=== PATIENT | male | born 1980 | race Caucasian/White ===

== ENCOUNTER → 2019-11-14 | Outpatient (CLI) | payer OTHER ==
[~2019-11-14] MED LIST: budesonide NS
== END | disposition home or self-care (01) ==
LOC: STAR 13:35
PROVIDERS: ATTEND Otolaryngology
DX: Z01.812 Encounter for preprocedural laboratory examination (principal); Z20.828 Contact with and (suspected) exposure to other viral communicable diseases
CPT/HCPCS: 36415; 87635

== ENCOUNTER 2019-11-18 06:19 | Day surgery (SDC) | payer OTHER ==
[~2019-11-18] VITALS: Ht 180.3 cm; Wt 75.0 kg
[2019-11-18] MEDS ORDERED: EPINEPHRINE TOPICAL SOLN 1 MG/ML, 30ML ONE (06:52)
[2019-11-18] MEDS ORDERED: LIDOCAINE 1%-EPI 1:100K, 20ML ONE (06:53)
[2019-11-18] MEDS ORDERED: BACITRACIN OINT 500U/GM, 15 GM ONE (06:53)
[2019-11-18] MEDS ORDERED: FLUORESCEIN SODIUM 500 MG/5 ML ONE (06:53)
[2019-11-18] MEDS ORDERED: LACTATED RINGERS 1,000 ML IV SCH (06:55)
[2019-11-18] MEDS ORDERED: CHLORHEXIDINE 15 ML UDC MM STA (06:55)
[2019-11-18] MEDS ORDERED: SCOPOLAMINE 1MG PATCH TD ONE (07:02)
[2019-11-18] MEDS ORDERED: ACETAMINOPHEN 500 MG TABLET PO STA (07:02)
[2019-11-18] MEDS ORDERED: FENTANYL PF 250 MCG/5ML ONE (07:10)
[2019-11-18] MEDS ORDERED: MIDAZOLAM 1 MG/ML, 2ML ONE (07:10)
[2019-11-18] MEDS ORDERED: FENTANYL PF 100 MCG/2ML IV PRN (07:30)
[2019-11-18] MEDS ORDERED: PROMETHAZINE 25 MG/ML, 1ML IVPush PRN (07:30)
[2019-11-18] MEDS ORDERED: OXYcodone 5 MG/5 ML ORAL.SOL UDC PO PRN (07:30)
[2019-11-18] MEDS ORDERED: MEPERIDINE/PF 25MG/0.5ML IVPush PRN (07:30)
[2019-11-18] MEDS ORDERED: LABETALOL 5MG/ML, 20ML IV PRN (07:30)
[2019-11-18] MEDS ORDERED: EPHEDRINE 50 MG/ML, 1ML IVPush PRN (07:30)
[2019-11-18] MEDS ORDERED: HYDROmorphone 1 MG/ML, 1ML INJ IVPush PRN (07:30)
[2019-11-18] MEDS ORDERED: ONDANSETRON 2MG/ML, 2ML IVPush PRN (07:30)
[2019-11-18] MEDS ORDERED: hydrALAzine 20 MG/ML, 1ML IV PRN (07:30)
[2019-11-18] MEDS ORDERED: ONDANSETRON 2MG/ML, 2ML ONE (07:58)
[2019-11-18] MEDS ORDERED: CEFAZOLIN 1,000 MG ONE (07:58)
[2019-11-18] MEDS ORDERED: SUCCINYLCHOLINE 20 MG/ML, 10ML ONE (07:58)
[2019-11-18] MEDS ORDERED: PROPOFOL 10 MG/ML, 20ML ONE (07:58)
[2019-11-18] MEDS ORDERED: DEXAMETHASONE 4 MG/ML, 1ML ONE (07:58)
[2019-11-18] MEDS ORDERED: LIDOCAINE-MPF 2% ,5ML ONE (08:29)
[2019-11-18] MEDS ORDERED: KETOROLAC 30 MG/1 ML ONE (08:29)
== END 2019-11-18 14:45 | disposition home or self-care (01) ==
LOC: OUT 06:19
PROVIDERS: ATTEND Otolaryngology
DX: J32.0 Chronic maxillary sinusitis (principal); J33.9 Nasal polyp, unspecified; J34.89 Other specified disorders of nose and nasal sinuses; Z79.899 Other long term (current) drug therapy; Z88.5 Allergy status to narcotic agent; Z91.048 Other nonmedicinal substance allergy status; Z98.890 Other specified postprocedural states
CPT/HCPCS: 31253; 31256; 31259; 88304; J0330; J0690; J1100; J1885; J2250; J2405; J2704; J3010; J3490; J7120

== ENCOUNTER 2019-11-25 08:08 | Day surgery (SDC) | payer OTHER ==
[~2019-11-25] VITALS: Ht 180.3 cm; Wt 75.2 kg
[~2019-11-25 08:08] MED LIST changes: +OXYMETAZOLINE NASAL SPRAY 0.05%, 15ML ONE
[2019-11-25] MEDS ORDERED: CHLORHEXIDINE 15 ML UDC MM STA (08:27)
[2019-11-25] MEDS ORDERED: OXYMETAZOLINE NASAL SPRAY 0.05%,30ML NAS ONE (10:16)
== END 2019-11-25 10:45 | disposition home or self-care (01) ==
LOC: OUT 08:08
PROVIDERS: ATTEND Otolaryngology
DX: J32.0 Chronic maxillary sinusitis (principal); Z20.828 Contact with and (suspected) exposure to other viral communicable diseases; Z88.8 Allergy status to other drugs, medicaments and biological substances; Z88.5 Allergy status to narcotic agent; Z87.891 Personal history of nicotine dependence; Z72.89 Other problems related to lifestyle; Z79.899 Other long term (current) drug therapy
CPT/HCPCS: 87635

== ENCOUNTER → 2020-04-21 | Outpatient (CLI) | payer OTHER ==
[~2020-04-21] MED LIST changes: +CHOL400T5 PO; -OXYMETAZOLINE NASAL SPRAY 0.05%, 15ML ONE
== END | disposition home or self-care (01) ==
LOC: STAR 12:53
PROVIDERS: ATTEND Otolaryngology
DX: Z20.822 Contact with and (suspected) exposure to COVID-19 (principal); J32.0 Chronic maxillary sinusitis; J32.4 Chronic pansinusitis
CPT/HCPCS: 87635

== ENCOUNTER 2020-04-27 08:37 | Day surgery (SDC) | payer OTHER ==
[~2020-04-27] VITALS: Ht 180.3 cm; Wt 71.4 kg
[~2020-04-27 08:37] MED LIST changes: +BACITRACIN 50,000 UNIT ONE; +BACITRACIN OINT 500U/GM, 15 GM ONE; +EPINEPHRINE 1 MG/ML, 1ML ONE; +EPINEPHRINE TOPICAL SOLN 1 MG/ML, 30ML ONE; +FLUORESCEIN SODIUM 500 MG/5 ML ONE; +LIDOCAINE 1%, 20ML ONE; +OXYMETAZOLINE NASAL SPRAY 0.05%,30ML ONE
[2020-04-27] MEDS ORDERED: CHLORHEXIDINE 15 ML UDC ONE (09:22)
[2020-04-27 09:24] VITALS: BP 117/80
[2020-04-27] MEDS ORDERED: CHLORHEXIDINE 15 ML UDC MM ONE (09:30)
[2020-04-27] MEDS ORDERED: LACTATED RINGERS 1,000 ML IV SCH (09:30)
[2020-04-27] MEDS ORDERED: MIDAZOLAM 1 MG/ML, 2ML ONE (09:36)
[2020-04-27] MEDS ORDERED: FENTANYL PF 250 MCG/5ML ONE (09:36)
[2020-04-27] MEDS ORDERED: hydrALAzine 20 MG/ML, 1ML IV PRN (10:00)
[2020-04-27] MEDS ORDERED: PROMETHAZINE 25 MG/ML, 1ML IVPush PRN (10:00)
[2020-04-27] MEDS ORDERED: HALOPERIDOL 5 MG/ML IV PRN (10:00)
[2020-04-27] MEDS ORDERED: LABETALOL 5MG/ML, 20ML IV PRN (10:00)
[2020-04-27] MEDS ORDERED: OXYcodone 5 MG/5 ML ORAL.SOL UDC PO PRN (10:00)
[2020-04-27] MEDS ORDERED: FENTANYL PF 100 MCG/2ML IV PRN (10:00)
[2020-04-27] MEDS ORDERED: DIPHENHYDRAMINE 50 MG/ML, 1ML IVPush PRN (10:00)
[2020-04-27] MEDS ORDERED: HYDROmorphone 1 MG/ML, 1ML INJ IVPush PRN (10:00)
[2020-04-27] MEDS ORDERED: MEPERIDINE/PF 25MG/0.5ML IVPush PRN (10:00)
[2020-04-27] MEDS ORDERED: ACETAMINOPHEN 325 MG TABLET PO PRN (10:00)
[2020-04-27] MEDS ORDERED: DEXMEDETOMIDINE 200 MCG/2 ML ONE (10:15)
[2020-04-27] MEDS ORDERED: GLYCOPYRROLATE 0.2MG/1ML, 5ML ONE (11:41)
[2020-04-27] MEDS ORDERED: ONDANSETRON 2MG/ML, 2ML ONE (11:41)
[2020-04-27] MEDS ORDERED: PROPOFOL 10 MG/ML, 20ML ONE (11:41)
[2020-04-27] MEDS ORDERED: NEOSTIGMINE 1 MG/ML, 10ML ONE (11:41)
[2020-04-27] MEDS ORDERED: DEXAMETHASONE 4 MG/ML, 1ML ONE (11:41)
[2020-04-27] MEDS ORDERED: SUCCINYLCHOLINE 20 MG/ML, 10ML ONE (11:41)
[2020-04-27] MEDS ORDERED: CEFAZOLIN 1,000 MG ONE (11:41)
[2020-04-27] MEDS ORDERED: ROCURONIUM 10MG/ML,5ML ONE (11:41)
[2020-04-27] MEDS ORDERED: MEPERIDINE/PF 25MG/ML,1ML ONE (12:10)
== END 2020-04-27 15:30 | disposition home or self-care (01) ==
LOC: OUT 08:37
PROVIDERS: ATTEND Otolaryngology
DX: J32.4 Chronic pansinusitis (principal); J33.8 Other polyp of sinus; Z79.899 Other long term (current) drug therapy; Z88.5 Allergy status to narcotic agent; Z88.8 Allergy status to other drugs, medicaments and biological substances; Z91.048 Other nonmedicinal substance allergy status
CPT/HCPCS: 31253; 31256; 88304; 88311; C9122; J0171; J0330; J0690; J1100; J2175; J2250; J2405; J2704; J3010; J7120; J2710

== ENCOUNTER 2020-05-04 09:40 | Day surgery (SDC) | payer OTHER ==
[~2020-05-04] VITALS: Ht 180.3 cm; Wt 72.3 kg
[~2020-05-04 09:40] MED LIST changes: -BACITRACIN 50,000 UNIT ONE; -BACITRACIN OINT 500U/GM, 15 GM ONE; -EPINEPHRINE 1 MG/ML, 1ML ONE; -EPINEPHRINE TOPICAL SOLN 1 MG/ML, 30ML ONE; -FLUORESCEIN SODIUM 500 MG/5 ML ONE; -LIDOCAINE 1%, 20ML ONE; -OXYMETAZOLINE NASAL SPRAY 0.05%,30ML ONE
[2020-05-04 10:12] VITALS: BP 112/74
[2020-05-04 10:14] VITALS: BP 112/74
[2020-05-04] MEDS ORDERED: OXYMETAZOLINE NASAL SPRAY 0.05%,30ML ONE (11:29)
[2020-05-04] MEDS ORDERED: LIDOCAINE 4%, 4 ML SYR/CANN TP ONE (11:39)
[2020-05-04] MEDS ORDERED: OXYMETAZOLINE NASAL SPRAY 0.05%,30ML NAS ONE (11:39)
== END 2020-05-04 11:50 | disposition home or self-care (01) ==
LOC: OUT 09:40
PROVIDERS: ATTEND Otolaryngology
DX: J32.4 Chronic pansinusitis (principal); J33.8 Other polyp of sinus; Z20.822 Contact with and (suspected) exposure to COVID-19
CPT/HCPCS: 87635